=== PATIENT | male | born 1970 | race Caucasian/White ===

== ENCOUNTER 2017-07-08 13:12 | Emergency (ER) | payer SELFPAY ==
[2017-07-08] MEDS ORDERED: Morphine 4 MG/ML VIAL ONE (15:49)
--- NOTE | 2017-07-08 16:43 | CT ---
CERVICAL SPINE CT SCAN WITHOUT IV CONTRAST: 07/08/17 HISTORY: 47-year-old male with neck and back pain after a fall last night. Significant disc osteophytosis note d at C5-C6 and C6-C7 with some variable severity canal, lateral recess, and foraminal stenosis. Ther e is no evidence for acute fracture or facet dislocation. There is some partial opacification of the left mastoid with some probable minimal fluid. Postoperative partial craniotomy changes are noted in the left occipital base. There is some associated encephalomalacia of the left cerebellar hemisphere . IMPRESSION: Cervical spondylosis without acute fracture or dislocation. Postoperative left occipital craniotomy c hange. Left mastoid opacification and probably some fluid in the left mastoid air cells. POS: KEVIN
--- NOTE | 2017-07-08 16:45 | CT ---
THORACIC SPINE CT SCAN WITHOUT IV CONTRAST: 07/08/17 HISTORY: Back pain following a fall last night. Examination of the thoracic spine demonstrates some generalized spondylosis. No evidence for acute fr acture or dislocation. IMPRESSION: No acute fracture or dislocation. Generalized spondylosis. POS: KEVIN
== END 2017-07-08 18:11 | disposition home or self-care (01) ==
LOC: ERS 13:12
DX: S16.1XXA Strain of muscle, fascia and tendon at neck level, initial encounter (principal); W19.XXXA Unspecified fall, initial encounter
CPT/HCPCS: 72125; 72128; 96372; J2270